=== PATIENT | female | born 1990 | race African-American/Black ===

== ENCOUNTER 2022-05-23 16:46 | Emergency (ER) | payer OTHER ==
[~2022-05-23] VITALS: Ht 167.6 cm; Wt 140.9 kg
[2022-05-23 16:58] VITALS: BP 111/65
== END 2022-05-23 18:51 | disposition home or self-care (01) ==
LOC: EMS 16:46
DX: H11.32 Conjunctival hemorrhage, left eye (principal); F10.20 Alcohol dependence, uncomplicated; J45.909 Unspecified asthma, uncomplicated
CPT/HCPCS: 99281; Z7502

== ENCOUNTER 2022-06-08 10:24 | Emergency (ER) | payer OTHER ==
[~2022-06-08] VITALS: Ht 167.6 cm; Wt 145.4 kg
[2022-06-08 10:34] VITALS: BP 143/75
[2022-06-08 12:14] LABS: ANION GAP 7 mmol/L (8-16); CALCIUM, TOTAL 9.5 mg/dL (8.8-10.5); CARBON DIOXIDE 28 mmol/L (22-29); CHLORIDE 100 mmol/L (98-107); CREATININE 0.88 mg/dL (0.60-1.30); GLUCOSE,RANDOM 105 mg/dL (70-110); POTASSIUM 4.5 mmol/L (3.5-5.1); SODIUM SERUM 135 mmol/L (136-145); UREA NITROGEN, BLOOD 10 mg/dL (7-18)
[2022-06-08 12:18] LABS: ALANINE AMINOTRANSFERASE 21 U/L (12-78); ALBUMIN 3.5 g/dL (3.4-5.0); ALKALINE PHOSPHATASE 99 U/L (46-116); ASPARTATE AMINOTRANSFERASE 18 U/L (15-37); BILIRUBIN,TOTAL 0.5 mg/dL (0.1-1.0); LIPASE 51 U/L (73-393); TOTAL PROTEIN, SERUM 8.2 g/dL (6.4-8.2)
[2022-06-08 12:32] LABS: GLOMERULAR FILTR. RATE CALC > 60 mL/min (>60)
== END 2022-06-08 12:40 | disposition left against medical advice (07) ==
LOC: EMS 10:24
DX: R10.9 Unspecified abdominal pain (principal); Z53.21 Procedure and treatment not carried out due to patient leaving prior to being seen by health care provider
CPT/HCPCS: 80053; 83690; 84703

== ENCOUNTER 2023-03-06 16:45 | Emergency (ER) | payer OTHER ==
[~2023-03-06] VITALS: Ht 167.6 cm; Wt 104.5 kg
[2023-03-06 16:51] VITALS: BP 124/71; PULSE 88; RESP 16; TEMP 98.6
== END 2023-03-06 17:21 | disposition left against medical advice (07) ==
LOC: EMS 16:46
DX: R19.7 Diarrhea, unspecified (principal); R10.9 Unspecified abdominal pain; R11.0 Nausea; Z53.21 Procedure and treatment not carried out due to patient leaving prior to being seen by health care provider
CPT/HCPCS: 99281; Z7502